=== PATIENT | female | born 1975 | race Caucasian/White ===

== ENCOUNTER 2021-12-26 16:18 | Inpatient (IN) ==
[2021-12-26] MEDS ORDERED: LACTATED RINGERS 1,000 ML IV ONE (16:57)
--- NOTE | 2021-12-26 16:57 | Emergency Department Note ---
Syncope HPI General Chief Complaint: Syncope Stated Complaint: dehydration Time Seen by Provider: 12/26/21 16:28 Source: patient Mode of arrival: ambulatory Limitations: no limitations History of Present Illness HPI Narrative: Narrative: 46-year-old female with a history of type 1 diabetes, chronic kidney disease who ended up having a dual kidney pancreas transplant in 2013 who is chronically immunosuppressed with tacrolimus and prednisone presents to the ER to be evaluated after a syncopal episode in the heat at the parking lot at [facility]. An off-duty it disaster recovery manager witnessed her episode and asked if she needs help and he helped lower her to the ground she has minor abrasions over her knees. He evaluated her blood pressure and blood glucose as well as heart rate which were all normal at the time. She ended up driving herself back to work after she was cleared by paramedics but the nurses insisted she go to the ER for evaluation. She denies fever, chills, body aches, nausea, vomiting, chest pain, chest pressure, shortness of breath, abdominal pain, dark stools, dysuria, urgency or frequency. She feels like she was dehydrated yesterday. She has been trying to hydrate, nothing is made anything better or worse. She has not had any recurrent episodes of syncope. She is here for further evaluation. Her transplant was done at [facility]. Her blood glucose taken at work was 130. She was seen in the ER approximately a month ago for concern for GI bleed she had a clear colonoscopy after that. She is on chronic iron supplementation as well. She also takes mycophenolate spironolactone lansoprazole, gabapentin and denosumab and a daily aspirin. Related Data Home Medications Medication Instructions Recorded Confirmed aspirin 81 mg chewable tablet 81 mg PO QDAY 02/13/16 10/20/21 mycophenolate sodium 360 mg 720 mg PO BID 02/13/16 10/20/21 tablet,delayed release prednisone 5 mg tablet 5 mg PO QDAY 02/13/16 10/20/21 tacrolimus 1 mg capsule, 3 mg PO .COMPLEX 02/14/17 06/03/19 immediate-release cholecalciferol (vitamin D3) 25 2,000 unit PO DAILY 10/02/17 10/20/21 mcg (1,000 unit) tablet denosumab 60 mg/mL subcutaneous 60 mg SQ ONCE 05/02/18 05/20/22 syringe omega 8-gis-emc-fish oil 500 mg 1 each PO DAILY 10/02/17 10/20/21 (200mg-300mg)-1,000 mg capsule cyclobenzaprine 10 mg tablet See Rx Instructions PO QHS 30 days 05/14/18 10/20/21 #30 tabs gabapentin 100 mg capsule See Rx Instructions PO QHS 05/14/18 10/20/21 lansoprazole 30 mg capsule,delayed 30 mg PO QPM 30 days #30 caps 05/14/18 10/20/21 release spironolactone 50 mg tablet 25 mg PO BID 20 days #20 tabs 05/14/18 10/20/21 tacrolimus 0.5 mg capsule, PO 30 days ##60 05/14/18 05/14/18 immediate-release Previous Rx's Medication Instructions Recorded amoxicillin 250 mg capsule 250 mg PO TID #30 caps 05/14/18 Allergies Allergy/AdvReac Type Severity Reaction Status Date / Time No Known Drug Allergies Allergy Verified 12/26/21 16:24 Review of Systems ROS ROS Narrative: Narrative: All systems ED: reviewed and negative except as stated. PFSH Narrative Patient History Narrative: Narrative: Medical/Surgical/Family History All Active Problems (Updated 12/26/21 @ 19:12 by Mykel Valero PA-C) Hyponatremia (Acute) Hypokalemia (Acute) Rectal bleeding (Acute) Acute upper GI bleed (Acute) Anemia (Acute) Insomnia (Chronic) Fatigue (Chronic) Osteoarthritis (Chronic) Cubital tunnel syndrome on left (Chronic) Paresthesias (Chronic) Pustular lesion (Chronic) Myofascial pain (Acute) Shoulder pain (Chronic) Immunocompromised (Chronic) Herpes zoster (Acute) Osteoporosis (Chronic) Pain of left calf (Acute) Closed fracture of lateral malleolus of left fibula (Acute) Closed fracture of medial malleolus of left tibia (Acute) Vitamin D deficiency (Chronic) Renal osteodystrophy (Chronic) End stage renal disease (Chronic) Peritonitis (Chronic) Pancreas transplanted (Chronic 01/04/14) Kidney replaced by transplant (Chronic 01/04/14) Essential hypertension (Chronic) Hyperlipidemia (Chronic) Diabetic nephropathy (Chronic) Diabetes mellitus with renal manifestation (Chronic) CKD (chronic kidney disease), stage V (Chronic 04/23/11) Band-shaped keratopathy (Chronic) Anxiety (Chronic) Anemia in CKD (chronic kidney disease) (Chronic) Medical History (Updated 12/26/21 @ 19:12 by Mykel Valero PA-C) Anemia in CKD (chronic kidney disease) Anxiety Band-shaped keratopathy CKD (chronic kidney disease), stage V (04/23/11) Diabetes mellitus with renal manifestation Kidney and pancreas transplant Diabetic nephropathy End stage renal disease Essential hypertension Hyperlipidemia Peritonitis Renal osteodystrophy Vitamin D deficiency Surgical History History of arthroscopy of left knee knee tracking surgery History of eye surgery 2003 Bilateral laser photocoagulation for diabetic retinopathy; vitrectomy History of hysterectomy 2004 History of wisdom tooth extraction Kidney replaced by transplant (01/04/14) [facility]lee Quan in [place] Pancreas transplanted (01/04/14) Ashlee Glass in [place] Family History Grandfather CHF (congestive heart failure) Father Coronary atherosclerosis Hypothyroidism Unknown Benign neoplasm of lymphatics Social History Smoking Status: Never smoker Alcohol Intake Frequency: a few times a month Substance Use: does not use Exam Narrative Narrative: Narrative: Gen: No acute distress Eyes: PERRL, no conjunctival injection , and symmetrical lids. Sclerae non icteric HENMT: Normocephalic Atraumatic head, external nose and ears. Moist MM. CVS: +S1/S2, No murmurs or gallops. Radial pulses 2+ and equal bilat. No swelling RESP: Unlabored respiratory effort . Clear to auscultation bilaterally (CTAB). No noted wheezes rales or ronchi. GI: Nontender/Nondistended (NTND), No focal tenderness MSK: Extremities w/o deformity or ttp. No cyanosis or clubbing. Skin: Warm, Dry . No rashes or lesions . Cap refill less than 2. Psych: Awake, Alert, & Oriented (AAO) x3. Appropriate mood and affect . \ General Limitations: no limitations Course Vital Signs Vital signs: Vital Signs Temperature 98.0 F 12/26/21 16:22 Pulse Rate 89 12/26/21 16:22 Respiratory Rate 16 12/26/21 16:22 Blood Pressure 128/74 12/26/21 16:22 Pulse Oximetry (%) 100 12/26/21 16:22 Oxygen Delivery Method 12/26/21 16:22 Temperature 98.0 F 12/26/21 16:22 Pulse Rate 89 12/26/21 16:22 Respiratory Rate 16 12/26/21 16:22 Blood Pressure 128/74 12/26/21 16:22 Pulse Oximetry (%) 100 12/26/21 16:22 Oxygen Delivery Method 12/26/21 16:22 MDM MDM Narrative Medical decision making narrative: Narrative: Patient has syncopal episode in the heat today. Is 105 degrees outside. She was taking her shopping cart back from shopping at [employer]. She denies any other symptoms or recurrence of episodes. She is a pancreas/kidney transplant recipient. She is chronically on tacrolimus and prednisone. She has never had a syncopal episode like this before. She believes she was dehydrated yesterday. She did have a recent GI bleed a month ago with clean colonoscopy. CBC will be obtained to rule out anemia. Chem-8 will be obtained to evaluate kidney function and electrolytes. She will also have a [id number] troponin and EKG obtained. She will receive a liter of lactated Ringer's and will be reevaluated. CBC: Hemoglobin of 5-1/2 and hematocrit of 17.9 respectively Chem-8: Hematocrit of 18 low with a BUN of 25 concerning for upper GI bleed. Patient's creatinine is 2.4. She is a kidney transplant patient. Type and screen ordered at this time [id number] troponin: 0L EKG: Normal sinus rhythm at a rate of 93 bpm with borderline MA interval minimal ST depression globally but no evidence of acute ischemia. PT INR: Normal aPTT: Normal 2 units of RBCs will be typed and crossmatched. Rectal exam will be performed Patient refused rectal exam, she had a clean colonoscopy at the end of October. This was done by Dr. Molina Shell locally and she has been seeing Kisha Kay the GRANT COORDINATOR that works with him. They said if she had continued bleeding she would need an upper endoscopy. She had an anemia requiring transfusion today. We do not have GI coverage on-call. She will be given 2 units of blood and we will work to transfer versus admission. I will withhold starting Protonix due to her kidney disease at this time. Dr Magana: Willing to do upper GI, pending hospitalist accepting Dr Adame: Graciously agreed to admit the patient CC TIME Critical Care Time Critical Care Time: Yes Total Critical Care Time: 30 Attestation: Total critical care time of 30min including performance of history and physical exam, review of results, re-examinations, time spent documenting, supervisor border department, review of old records, discussions with patient and family, discussions with lean consultant(s), discussion with admitting physician, completion of admission/transfer paperwork. This does not include time for any separately documented procedures. Discharge Plan Patient/Caregiver Discharge Instructions Pt seen by GRANT COORDINATOR/PA only: Yes Clinical Impression: Acute upper GI bleed, Anemia Patient Disposition: Xfer As Inpt ([facility]) Follow up with: Cayetano Martinez MD [Primary Care Provider] - Prescriptions: No Action tacrolimus 1 mg capsule 3 mg PO .COMPLEX Label Comments: 3 mg PO QAM and 3mg QPM Rx Instructions: 3 mg PO QAM and 2.5mg QPM prednisone 5 mg tablet 5 mg PO QDAY aspirin 81 mg tablet,chewable 81 mg PO QDAY mycophenolate sodium 360 mg tablet,delayed release (DR/EC) 720 mg PO BID gabapentin 100 mg capsule See Rx Instructions PO QHS Label Comments: 100-200mg PO QHS; Rx Instructions: 100-200mg PO QHS; spironolactone 50 mg tablet 25 mg PO BID 20 Days Qty: 20 Label Comments: RX Dr. Nicole lansoprazole 30 mg capsule,delayed release(DR/EC) 30 mg PO QPM 30 Days Qty: 30 Label Comments: RX from Dr. Nicole tacrolimus 0.5 mg capsule PO 30 Days Qty: 60 cyclobenzaprine 10 mg tablet See Rx Instructions PO QHS 30 Days Qty: 30 Label Comments: 10-20mg PO QHS; RX Dr. Nicole Rx Instructions: 10-20mg PO QHS; RX Dr. Nicole amoxicillin 250 mg capsule 250 mg PO TID Qty: 30 0RF cholecalciferol (vitamin D3) 1,000 UNIT tablet 2,000 unit PO DAILY omega 4-sxp-cef-fish oil 1 EACH capsule 1 each PO DAILY denosumab 60 MG/ML syringe 60 mg SQ ONCE Rx Instructions: Q 6 Months
[2021-12-26 17:17] LABS: POC Calcium, Ionized 1.08 (1.16-1.32); POC Creatinine 2.4 (0.6-1.2); POC Potassium 3.8 (3.3-5.1)
[2021-12-26 17:52] LABS: Basophils # (Auto) 0.03 K/mcL (0.00-0.30); Basophils % (Auto) 0.5 % (0.0-2.0); Eosinophils # (Auto) 0 K/mcL (0.00-0.70); Eosinophils % (Auto) 0 % (0.0-7.0); Hematocrit 17.9 % (34.1-44.9); Hemoglobin 5.5 g/dL (11.2-15.7); Lymphocytes # (Auto) 0.54 K/mcL (1.50-4.80); Mean Cell Volume 84.4 fL (80.0-100.0); Mean Corpuscular HGB Conc 30.7 g/dL (31.0-36.0); Mean Platelet Volume 9.3 fL (7.4-10.4); Monocytes % (Auto) 6.7 % (1.0-12.0); Neutrophils % (Auto) 83.5 % (38.0-78.0); Platelet Count 335 K/mcL (140-440); RBC 2.12 M/mcL (3.59-5.38); Red Cell Distribution Width 18.9 % (11.5-14.5)
[2021-12-26] MEDS ORDERED: 0.9 % SODIUM CHLORIDE 250 ML IV SCH ×2 (18:00→20:15)
[2021-12-26 18:26] LABS: INR 0.9 (0.9-1.1)
--- NOTE | 2021-12-26 20:23 | Internal Med History&Physical ---
HPI History of Present Illness Patient information: Note initiated : 12/26/21 at 8:18 pm Service Date, if different from initiated Date: [] Patient: Selena Gardner 46 y/o F admitted on for dehydration. Chief Complaint: [syncope] Chief complaint: syncope History of present illness: Ms. Ariel Arora is a 46 year old F history of type 1 diabetes and end-stage renal disease status post pancreas and kidney transplant 8 years ago, presenting with multiple episode of syncope. She passed out once over the weekend 3 days ago and then again earlier this afternoon. She was in the [employer] parking lot and she suddenly felt lightheaded with mild shortness of breath then she passed out and lost consciousness. She woke up surrounded by any nurse first assist who passed by and told her that she resumed her consciousness soon after she passed out. She was being sent to our ED via EMS. Patient stated that she had a colonoscopy in year ago and he was told to clean. Labs significant for severe anemia with hemoglobin count 5.5; it was 10.0 back in October 2021. Other remarkable labs finding were hyper natremia with sodium level 128 as well as serum creatinine level of 2.4 with baseline 1.9. Patient refused rectal exams. Admission request was called for symptomatic anemia with associated syncope. Constitutional Constitutional: Absent chills, excessive sweating, fatigue, fever(s) or weakness EENT Eyes: Absent blurry vision, change in vision, loss of vision or other visual disturbances Ears: Absent decreased hearing or tinnitus Nose, mouth and throat: Absent abnormal hearing, dry mouth, headache(s), nasal congestion or sore throat Cardiovascular Cardiovascular: Absent chest pain, chest pain at rest, edema, irregular heart rhythm or palpatations Respiratory Respiratory: Absent cough, dyspnea or wheezing Gastrointestinal Gastrointestinal: Absent abdominal pain, constipation, diarrhea, nausea or vomit ing Musculoskeletal Musculoskeletal: Absent back pain, deformity, limited range of motion, muscle cramps, muscle weakness or numbness Integumentary Integumentary: Absent lesions, rash or wounds Neurological Neurological: Absent focal weakness, headache(s) or numbness Psychiatric Psychiatric: Absent anxiety, depression or hallucinations PFSH PFSH All Active Problems (Updated 12/26/21 @ 20:27 by West Adame MD) Stage 2 acute kidney injury (Acute) Symptomatic anemia (Acute) Hyponatremia (Acute) Hypokalemia (Acute) Rectal bleeding (Acute) Acute upper GI bleed (Acute) Anemia (Acute) Insomnia (Chronic) Fatigue (Chronic) Osteoarthritis (Chronic) Cubital tunnel syndrome on left (Chronic) Paresthesias (Chronic) Pustular lesion (Chronic) Myofascial pain (Acute) Shoulder pain (Chronic) Immunocompromised (Chronic) Herpes zoster (Acute) Osteoporosis (Chronic) Pain of left calf (Acute) Closed fracture of lateral malleolus of left fibula (Acute) Closed fracture of medial malleolus of left tibia (Acute) Vitamin D deficiency (Chronic) Renal osteodystrophy (Chronic) End stage renal disease (Chronic) Peritonitis (Chronic) Pancreas transplanted (Chronic 01/04/14) Kidney replaced by transplant (Chronic 01/04/14) Essential hypertension (Chronic) Hyperlipidemia (Chronic) Diabetic nephropathy (Chronic) Diabetes mellitus with renal manifestation (Chronic) CKD (chronic kidney disease), stage V (Chronic 04/23/11) Band-shaped keratopathy (Chronic) Anxiety (Chronic) Anemia in CKD (chronic kidney disease) (Chronic) Medical History (Updated 12/26/21 @ 20:27 by West Adame MD) Anemia in CKD (chronic kidney disease) Anxiety Band-shaped keratopathy CKD (chronic kidney disease), stage V (04/23/11) Diabetes mellitus with renal manifestation Kidney and pancreas transplant Diabetic nephropathy End stage renal disease Essential hypertension Hyperlipidemia Peritonitis Renal osteodystrophy Vitamin D deficiency Surgical History History of arthroscopy of left knee knee tracking surgery History of eye surgery 2003 Bilateral laser photocoagulation for diabetic retinopathy; vitrectomy History of hysterectomy 2004 History of wisdom tooth extraction Kidney replaced by transplant (01/04/14) Ashlee Glass in [place] Pancreas transplanted (01/04/14) Ashlee Glass in [place] Family History Grandfather CHF (congestive heart failure) Father Coronary atherosclerosis Hypothyroidism Unknown Benign neoplasm of lymphatics Social History (Updated 06/05/18 @ 20:20 by Toño Benites MD) household members: spouse housing: house lives independently: Yes marital status: education level: college occupational status: employed alcohol intake frequency: a few times a month substance use type: does not use MEDS/ALLERGIES Home Medications and Allergies Home Medications Medication Instructions Recorded Confirmed Type aspirin 81 mg chewable tablet 81 mg PO QDAY 02/13/16 10/20/21 History mycophenolate sodium 360 mg 720 mg PO BID 02/13/16 10/20/21 History tablet,delayed release prednisone 5 mg tablet 5 mg PO QDAY 02/13/16 10/20/21 History tacrolimus 1 mg capsule, 3 mg PO .COMPLEX 02/14/17 06/03/19 History immediate-release cholecalciferol (vitamin D3) 25 2,000 unit PO DAILY 10/02/17 10/20/21 History mcg (1,000 unit) tablet denosumab 60 mg/mL subcutaneous 60 mg SQ ONCE 10/02/17 10/20/21 History syringe omega 2-cci-ykj-fish oil 500 mg 1 each PO DAILY 10/02/17 10/20/21 History (200mg-300mg)-1,000 mg capsule amoxicillin 250 mg capsule 250 mg PO TID #30 caps 05/14/18 10/20/21 Rx cyclobenzaprine 10 mg tablet See Rx Instructions PO QHS 30 days 05/14/18 10/20/21 History #30 tabs gabapentin 100 mg capsule See Rx Instructions PO QHS 05/14/18 10/20/21 History lansoprazole 30 mg capsule,delayed 30 mg PO QPM 30 days #30 caps 05/14/18 10/20/21 History release spironolactone 50 mg tablet 25 mg PO BID 20 days #20 tabs 05/14/18 10/20/21 History tacrolimus 0.5 mg capsule, PO 30 days ##60 05/14/18 05/14/18 History immediate-release Allergies Allergy/AdvReac Type Severity Reaction Status Date / Time No Known Drug Allergies Allergy Verified 12/26/21 16:24 EXAM Constitutional Vitals: Temp Pulse Resp BP Pulse Ox O2 Del Method 36.7 C 99 H 16 132/72 100 12/26/21 16:22 12/26/21 19:16 12/26/21 16:22 12/26/21 19:16 12/26/21 19:16 12/26/21 16:22 General appearance: cooperative and no acute distress Head Head exam: Present atraumatic and normocephalic Eye Eye exam: Present EOMI and PERRL ENT ENT exam: Present mucous membranes moist, normal exam and normal external ear exam Neck Neck exam: Present normal inspection; Absent lymphadenopathy, tenderness or thyromegaly Respiratory Respiratory exam: Absent accessory muscle use, respiratory distress or wheezes Cardiovascular Cardiovascular exam: Present systolic murmur; Absent JVD GI/Abdominal GI/Abdominal exam: Present normal bowel sounds and soft; Absent organomegaly or tenderness Extremities Exam Extremities exam: Present full ROM, normal capillary refill and normal inspection; Absent tenderness Neurological Exam Neurological exam: Present alert, CN II-XII intact and oriented X3; Absent motor sensory deficit Psychiatric Psychiatric exam: Present normal affect and normal mood; Absent anxious or depressed Skin Skin exam: Present dry and intact DATA Data Completed and Pending Labs: Labs from last 24 hours 12/26/21 12/26/21 12/26/21 17:19 17:12 17:05 WBC RBC Hgb Hct POC Hct 18.0 L* MCV MCH MCHC RDW Plt Count MPV Immature Gran % (Auto) Neut % (Auto) Lymph % (Auto) Brooke % (Auto) Eos % (Auto) Baso % (Auto) Lymph # (Auto) Brooke # (Auto) Eos # (Auto) Baso # (Auto) Immature Gran # Absolute Neutrophils PT 13.0 INR 0.9 APTT 24.0 POC Sodium 128 L POC Potassium 3.8 POC Chloride 90 L POC Total CO2 32.0 H POC BUN 25 H POC Creatinine 2.4 H POC Glucose 121 H POC WB Ioniz Calcium 1.08 L POC Troponin I 0 L 12/26/21 17:05 WBC 6.0 RBC 2.12 L Hgb 5.5 L* Hct 17.9 L* POC Hct MCV 84.4 MCH 25.9 L MCHC 30.7 L RDW 18.9 H Plt Count 335 MPV 9.3 Immature Gran % (Auto) 0.3 Neut % (Auto) 83.5 H Lymph % (Auto) 9.0 L Brooke % (Auto) 6.7 Eos % (Auto) 0 Baso % (Auto) 0.5 Lymph # (Auto) 0.54 L Brooke # (Auto) 0.40 Eos # (Auto) 0 Baso # (Auto) 0.03 Immature Gran # 0.02 Absolute Neutrophils 5.02 PT INR APTT POC Sodium POC Potassium POC Chloride POC Total CO2 POC BUN POC Creatinine POC Glucose POC WB Ioniz Calcium POC Troponin I A/P Assessment and plan (1) Hyponatremia: Status: Acute (2) Symptomatic anemia: Status: Acute (3) Immunocompromised: Status: Chronic (4) Kidney replaced by transplant: Status: Chronic Comment: Ashlee Glass in [place] (5) Pancreas transplanted: Status: Chronic Comment: Ashlee Glass in [place] (6) Stage 2 acute kidney injury: Status: Acute Narrative A/P Narrative: Assessment and Plans: 1. Symptomatic anemia, suspect upper GI bleeding: Inpatient med surg Clear liquid diet, NPO after midnight Consulting general surgeon Dr. Mgaana for potential EGD Protonix IV BID Hold Aspirin 2 unit pRBC transfusion, repeat cbc in the morning to trend H/H 2. Stage 2 acute kidney injury, s/p kidney/pancreas double transplant: Baseline creatinine level 2.0, currently at 2.4 IV fluid, hold diuretics Mycophenolate Tacrolimus Prednisone Repeat CMP in the morning to trend kidney functions 3. Hyponatremia: IV fluid, hold diuretics Repeat CMP in the morning to trend serum sodium level GI ppx: Protonix IV BID DVT ppx: SCDs Code status: Full Prognosis: guarded Disposition: inpatient med surg Time Spent With Patient Time: Total time spent is greater than 50% in coordination of care (as documented) at patient's floor/unit and/or counseling patient: Total time spent with greater than 50% in coordination of care (as documented) at patient's floor/unit and/or counseling patient:: 50 - 70 minutes
[2021-12-26] MEDS ORDERED: TACROLIMUS 0.5 MG CAPSULE PO SCH (21:00)
[2021-12-26] MEDS ORDERED: IPRATROPIUM/ALBUTEROL 3 ML AMPUL.NEB NEB PRN (21:02)
[2021-12-26] MEDS ORDERED: ONDANSETRON 4 MG/2 ML VIAL IV PRN (21:02)
[2021-12-26] MEDS ORDERED: traZODone HCL 50 MG TABLET PO PRN (21:02)
[2021-12-26] MEDS ORDERED: GABAPENTIN 100 MG CAPSULE PO SCH (21:02)
[2021-12-26] MEDS: ACETAMINOPHEN 325 MG TABLET PO PRN (22:14)
[2021-12-26] MEDS: TACROLIMUS 1 MG CAPSULE PO SCH (22:17)
[2021-12-26] MEDS: 0.9 % SODIUM CHLORIDE 10 ML SYRINGE IV SCH (22:23)
[2021-12-26] MEDS: 0.9 % SODIUM CHLORIDE 1,000 ML IV SCH (23:31)
[2021-12-27] MEDS: ACETAMINOPHEN 325 MG TABLET PO PRN ×2 (03:58→10:53)
[2021-12-27] MEDS: 0.9 % SODIUM CHLORIDE 10 ML SYRINGE IV SCH ×2 (03:59→14:12)
[2021-12-27 06:17] LABS: Basophils # (Auto) 0.05 K/mcL (0.00-0.30); Basophils % (Auto) 0.8 % (0.0-2.0); Eosinophils # (Auto) 0.03 K/mcL (0.00-0.70); Eosinophils % (Auto) 0.5 % (0.0-7.0); Hematocrit 25.2 % (34.1-44.9); Hemoglobin 7.9 g/dL (11.2-15.7); Lymphocytes # (Auto) 1.41 K/mcL (1.50-4.80); Lymphocytes % (Auto) 22.6 % (15.5-49.0); Mean Cell Volume 85.7 fL (80.0-100.0); Mean Corpuscular HGB Conc 31.3 g/dL (31.0-36.0); Mean Platelet Volume 9.2 fL (7.4-10.4); Monocytes # (Auto) 0.59 K/mcL (0.10-0.90); Monocytes % (Auto) 9.4 % (1.0-12.0); Neutrophils % (Auto) 66.4 % (38.0-78.0); Platelet Count 250 K/mcL (140-440); RBC 2.94 M/mcL (3.59-5.38); Red Cell Distribution Width 17.2 % (11.5-14.5); WBC 6.3 K/mcL (4.5-11.0)
[2021-12-27 06:40] LABS: ALT/SGPT 8 U/L (<40); AST/SGOT 12 U/L (<32); Albumin/Globulin Ratio 1.7 (1.0-2.3); Alkaline Phosphatase 41 U/L (39-117); Bilirubin,Total 0.6 mg/dL (0.1-1.0); Blood Urea Nitrogen 22 mg/dL (6-20); Calcium 7.9 mg/dL (8.6-10.4); Carbon Dioxide 25 mmol/L (22-30); Chloride 97 mmol/L (96-108); Globulin 1.8 gm/dL (2.2-3.7); Glomerular Filtration Rate 31; Glucose 83 mg/dL (70-105)
--- NOTE | 2021-12-27 08:03 | General Surg History&Physical ---
HPI History of Present Illness Patient information: Note initiated : 12/27/21 at 7:58 am Service Date, if different from initiated Date: [] Patient: Selena Gardner 46 y/o F admitted on 12/26/21 for dehydration. Chief Complaint: [] Chief complaint: Weakness History of present illness: Ms. Ariel Arora is a 46 year old F who presented to the hospital several months ago with a GI bleed, she was admitted and underwent a colonoscopy by Dr. Marie which was by report negative. She was discharged and was doing well up until yesterday when she was walking in the parking lot at [facility] felt faint and had a witnessed syncopal episode, she never lost consciousness. She was referred to the emergency room where her H&H was significant for a marked decrease. She was told at the time of her colonoscopy and if she ever had any other symptoms of a GI bleed she would need an upper endoscopy. I was called to do an EGD. Patient at this time feels much better, she was admitted overnight given 2 units of blood her H&H responded appropriately. She denies any dark or melanotic stools, she has no lightheadedness at this time. She has no fevers chills nausea or vomiting. Review of Systems Review of systems: All systems are reviewed, negative other than above PFSH PFSH All Active Problems Stage 2 acute kidney injury (Acute) Symptomatic anemia (Acute) Hyponatremia (Acute) Hypokalemia (Acute) Rectal bleeding (Acute) Acute upper GI bleed (Acute) Anemia (Acute) Insomnia (Chronic) Fatigue (Chronic) Osteoarthritis (Chronic) Cubital tunnel syndrome on left (Chronic) Paresthesias (Chronic) Pustular lesion (Chronic) Myofascial pain (Acute) Shoulder pain (Chronic) Immunocompromised (Chronic) Herpes zoster (Acute) Osteoporosis (Chronic) Pain of left calf (Acute) Closed fracture of lateral malleolus of left fibula (Acute) Closed fracture of medial malleolus of left tibia (Acute) Vitamin D deficiency (Chronic) Renal osteodystrophy (Chronic) End stage renal disease (Chronic) Peritonitis (Chronic) Pancreas transplanted (Chronic 01/04/14) Kidney replaced by transplant (Chronic 01/04/14) Essential hypertension (Chronic) Hyperlipidemia (Chronic) Diabetic nephropathy (Chronic) Diabetes mellitus with renal manifestation (Chronic) CKD (chronic kidney disease), stage V (Chronic 04/23/11) Band-shaped keratopathy (Chronic) Anxiety (Chronic) Anemia in CKD (chronic kidney disease) (Chronic) Medical History Anemia in CKD (chronic kidney disease) Anxiety Band-shaped keratopathy CKD (chronic kidney disease), stage V (04/23/11) Diabetes mellitus with renal manifestation Kidney and pancreas transplant Diabetic nephropathy End stage renal disease Essential hypertension Hyperlipidemia Peritonitis Renal osteodystrophy Vitamin D deficiency Surgical History History of arthroscopy of left knee knee tracking surgery History of eye surgery 2003 Bilateral laser photocoagulation for diabetic retinopathy; vitrectomy History of hysterectomy 2004 History of wisdom tooth extraction Kidney replaced by transplant (01/04/14) [facility] in [place] Pancreas transplanted (01/04/14) [facility] in [place] Family History Grandfather CHF (congestive heart failure) Father Coronary atherosclerosis Hypothyroidism Unknown Benign neoplasm of lymphatics Social History household members: spouse housing: house lives independently: Yes marital status: education level: college occupational status: employed alcohol intake frequency: a few times a month substance use type: does not use MEDS/ALLERGIES Home Medications and Allergies Home Medications Medication Instructions Recorded Confirmed Type aspirin 81 mg chewable tablet 81 mg PO QDAY 02/13/16 12/27/21 History mycophenolate sodium 360 mg 720 mg PO BID 02/13/16 12/27/21 History tablet,delayed release prednisone 5 mg tablet 5 mg PO QDAY 02/13/16 12/27/21 History tacrolimus 1 mg capsule, 2 mg PO BID 02/14/17 12/27/21 History immediate-release cholecalciferol (vitamin D3) 25 2,000 unit PO DAILY 10/02/17 12/27/21 History mcg (1,000 unit) tablet omega 0-flh-yfn-fish oil 500 mg 1 each PO DAILY 10/02/17 12/27/21 History (200mg-300mg)-1,000 mg capsule cyclobenzaprine 10 mg tablet See Rx Instructions PO QHS PRN 05/14/18 12/27/21 History Muscle Pain 30 days #30 tabs gabapentin 100 mg capsule See Rx Instructions PO QHS 05/14/18 12/27/21 History lansoprazole 30 mg capsule,delayed 30 mg PO QPM 30 days #30 caps 05/14/18 12/27/21 History release spironolactone 50 mg tablet See Rx Instructions .Route 05/14/18 12/27/21 History .COMPLEX 20 days #20 tabs Tylenol PM Extra Strength 1,000 mg PO QPM 12/27/21 12/27/21 History torsemide 10 mg tablet 1 tab PO QDAY 12/27/21 12/27/21 History Allergies Allergy/AdvReac Type Severity Reaction Status Date / Time No Known Drug Allergies Allergy Verified 12/26/21 16:24 Physical Examination Vital Signs Vital signs: Temp Pulse Resp BP Pulse Ox O2 Del Method 97.6 F 76 12 127/74 98 12/27/21 03:51 12/27/21 03:51 12/27/21 03:51 12/27/21 03:51 12/27/21 03:51 12/27/21 03:51 General physical appearance General physical exam: well developed, well nourished and no distress Eyes Eye exam: PERRL and normal ocular movement ENT ENT exam: normal pinna, normal nares, normal mucosa, no hearing loss and no congestion Head Head exam IM: Present atraumatic and normocephalic Neck Neck exam: no masses, no bruits, trachea midline, no lymphadenopathy and no venous distension Cardiovascular Cardiovascular exam IM: Present normal rate and rhythm Respiratory Respiratory exam: normal expansion, normal respiratory effort, clear to percuss ion and clear to auscultation Abdomen Abdomen: Present soft, non tender and bowel sounds Hernia: Present none Genitourinary Genitourinary (Female): Present normal external genitalia Rectum Rectum: Present normal sphincter tone, no hemorrhoids, no tenderness, no masses and no bleeding Integumentary Integumentary: Present no rash, no growths and no abnormal pigmentation Neurologic Neurologic: Present normal coordination and normal sensation Musculoskeletal Musculoskeletal: Present normal gait and normal posture Psychiatric Psychiatric: Present oriented to time, oriented to person, oriented to place, speech is normal and memory intact Results Labs Result diagrams: 12/27/21 05:10 12/27/21 05:10 Labs: Abnormal lab results 12/26/21 12/26/21 12/26/21 Range/Units 17:05 17:12 17:19 RBC 2.12 L (3.59-5.38) M/mcL Hgb 5.5 L* (11.2-15.7) g/dL Hct 17.9 L* (34.1-44.9) % POC Hct 18.0 L* (36-48) MCH 25.9 L (26.0-34.0) pg MCHC 30.7 L (31.0-36.0) g/dL RDW 18.9 H (11.5-14.5) % Neut % (Auto) 83.5 H (38.0-78.0) % Lymph % (Auto) 9.0 L (15.5-49.0) % Lymph # (Auto) 0.54 L (1.50-4.80) K/mcL POC Sodium 128 L (133-145) Sodium (133-145) mmol/L POC Chloride 90 L (96-108) POC Total CO2 32.0 H (22-30) POC BUN 25 H (6-20) BUN (6-20) mg/dL Creatinine (0.6-1.1) mg/dL POC Creatinine 2.4 H (0.6-1.2) POC Glucose 121 H (70-105) Calcium (8.6-10.4) mg/dL POC WB Ioniz Calcium 1.08 L (1.16-1.32) Total Protein (5.9-8.4) gm/dL Albumin (3.2-5.2) gm/dL Globulin (2.2-3.7) gm/dL POC Troponin I 0 L (0.02-0.08) 12/27/21 12/27/21 Range/Units 05:10 05:10 RBC 2.94 L (3.59-5.38) M/mcL Hgb 7.9 L (11.2-15.7) g/dL Hct 25.2 L (34.1-44.9) % POC Hct (36-48) MCH (26.0-34.0) pg MCHC (31.0-36.0) g/dL RDW 17.2 H (11.5-14.5) % Neut % (Auto) (38.0-78.0) % Lymph % (Auto) (15.5-49.0) % Lymph # (Auto) 1.41 L (1.50-4.80) K/mcL POC Sodium (133-145) Sodium 131 L (133-145) mmol/L POC Chloride (96-108) POC Total CO2 (22-30) POC BUN (6-20) BUN 22 H (6-20) mg/dL Creatinine 1.9 H (0.6-1.1) mg/dL POC Creatinine (0.6-1.2) POC Glucose (70-105) Calcium 7.9 L (8.6-10.4) mg/dL POC WB Ioniz Calcium (1.16-1.32) Total Protein 4.8 L (5.9-8.4) gm/dL Albumin 3.0 L (3.2-5.2) gm/dL Globulin 1.8 L (2.2-3.7) gm/dL POC Troponin I (0.02-0.08) Diabetes panel 12/27/21 Range/Units 05:10 Sodium 131 L (133-145) mmol/L Potassium 3.7 (3.3-5.1) mmol/L Chloride 97 (96-108) mmol/L Carbon Dioxide 25 (22-30) mmol/L BUN 22 H (6-20) mg/dL Creatinine 1.9 H (0.6-1.1) mg/dL Glucose 83 (70-105) mg/dL Calcium 7.9 L (8.6-10.4) mg/dL AST 12 (<32) U/L ALT 8 (<40) U/L Alkaline Phosphatase 41 (39-117) U/L Total Protein 4.8 L (5.9-8.4) gm/dL Albumin 3.0 L (3.2-5.2) gm/dL Calcium panel 12/27/21 Range/Units 05:10 Calcium 7.9 L (8.6-10.4) mg/dL Albumin 3.0 L (3.2-5.2) gm/dL Pituitary panel 12/27/21 Range/Units 05:10 Sodium 131 L (133-145) mmol/L Potassium 3.7 (3.3-5.1) mmol/L Chloride 97 (96-108) mmol/L Carbon Dioxide 25 (22-30) mmol/L BUN 22 H (6-20) mg/dL Creatinine 1.9 H (0.6-1.1) mg/dL Glucose 83 (70-105) mg/dL Calcium 7.9 L (8.6-10.4) mg/dL Adrenal panel 12/27/21 Range/Units 05:10 Sodium 131 L (133-145) mmol/L Potassium 3.7 (3.3-5.1) mmol/L Chloride 97 (96-108) mmol/L Carbon Dioxide 25 (22-30) mmol/L BUN 22 H (6-20) mg/dL Creatinine 1.9 H (0.6-1.1) mg/dL Glucose 83 (70-105) mg/dL Calcium 7.9 L (8.6-10.4) mg/dL Total Bilirubin 0.6 (0.1-1.0) mg/dL AST 12 (<32) U/L ALT 8 (<40) U/L Alkaline Phosphatase 41 (39-117) U/L Total Protein 4.8 L (5.9-8.4) gm/dL Albumin 3.0 L (3.2-5.2) gm/dL All other labs normal. A/P Assessment and plan (1) Stage 2 acute kidney injury: Status: Acute (2) Acute upper GI bleed: Plan: This is a pleasant 46-year-old female who presents with a GI bleed, most likely upper source. Risk, benefits, alternatives to work-up discussed with her at length including details of procedure and what to expect pre and post. She verbalizes understanding, all her questions are answered and she desires to continue. Plan: EGD today, follow-up based on results. Status: Acute Time Spent With Patient Time: Total time spent is greater than 50% in coordination of care (as documented) at patient's floor/unit and/or counseling patient:
[2021-12-27] MEDS: PANTOPRAZOLE 40 MG VIAL IV SCH ×2 (08:11→17:09)
[2021-12-27] MEDS ORDERED: TACROLIMUS 1 MG CAPSULE PO SCH (09:00)
[2021-12-27] MEDS ORDERED: VITAMIN D3 25 MCG TABLET PO SCH (09:00)
[2021-12-27] MEDS ORDERED: FISH OIL 1,000 MG CAPSULE PO SCH (09:00)
[2021-12-27] MEDS ORDERED: predniSONE 5 MG TABLET PO SCH (09:00)
[2021-12-27] MEDS ORDERED: MYCOPHENOLATE SODIUM 360 MG PO SCH (09:00)
[2021-12-27] MEDS: TACROLIMUS 1 MG CAPSULE PO SCH (09:13)
[2021-12-27] MEDS: 0.9 % SODIUM CHLORIDE 1,000 ML IV SCH (09:15)
[2021-12-27] MEDS ORDERED: PROPOFOL 200 MG/20 ML VIAL IV SCH (12:00)
[2021-12-27] MEDS ORDERED: MIDAZOLAM 2 MG/2 ML VIAL IV SCH (12:00)
--- NOTE | 2021-12-27 15:17 | EGD Procedure Note ---
EGD Procedure Notes Procedure Information Patient information: Note initiated : 12/27/21 at 3:16 pm Patient: Selena Gardner 46 y/o F admitted on 12/26/21 for dehydration. Pre-op diagnosis general: GI bleed Post-Op Diagnosis general: Same Date of Procedure: 12/27/21 Procedure: Esophagogastroduodenoscopy Procedure Narrative: After risk benefits and alternatives to the procedure were discussed with the patient at length she verbalized understanding and desire to continue with the procedure. Patient was taken to endoscopy. Surgical timeout was taken to verify patient and procedure being performed sedation was administered with 2 mg of Versed and 90 mcg of propofol. An adult gastroscope was entered and advanced under direct vision into the second portion of the duodenum. The antrum was fully inspected, the scope was retroflexed in the stomach. Full examination revealed normal second portion of the duodenum, normal first portion of the duodenum, normal stomach without evidence of bleed or ulcer. The GE junction was at 35 cm and the esophagus was normal on full exam. EBL none. Patient tolerated procedure well. Assessment: Normal EGD. May need tagged RBC scan versus capsule endoscopy to identify source of GI bleed.
--- NOTE | 2021-12-27 15:31 | Discharge Summary ---
Discharge Provider Provider IMPORTANT FOLLOW-UP INFORMATION FOR PCP: Patient information: Note initiated : 12/27/21 at 3:29 pm Service Date, if different from initiated Date: [] Patient: Selena Gardner 46 y/o F admitted on 12/26/21 for dehydration. Chief Complaint: [] Date of admission: 12/26/21 20:55 Discharge date: 12/27/21 Primary care physician: Cayetano Martinez Attending physician on admission: West Adame Consults: 12/26/21 18:15 Consult to Physician [CONS] Stat Comment: Consulting Provider: West Adame Reason For Exam: Physician to Consult Consult to Physician [CONS] Stat Comment: Consulting Provider: Matt Magana Reason For Exam: Physician to Consult 12/26/21 21:02 Consult to Physician [CONS] Routine Comment: Consulting Provider: Matt Magana Reason For Exam: Physician to Consult Attending physician on discharge: West Collado Puseb COURSE Hospital Course Hospital course: Ms. Ariel Arora is a 46 year old F history of type 1 diabetes and end-stage renal disease status post pancreas and kidney transplant 8 years ago, presenting with multiple episode of syncope. She passed out once over the weekend 3 days ago and then again earlier this afternoon. She was in the [employer] parking lot and she suddenly felt lightheaded with mild shortness of breath then she passed out and lost consciousness. She woke up surrounded by any business services manager who passed by and told her that she resumed her consciousness soon after she passed out. She was being sent to our ED via EMS. Patient stated that she had a colonoscopy in year ago and he was told to clean. Labs significant for severe anemia with hemoglobin count 5.5; it was 10.0 back in October 2021. Other remarkable labs finding were hyper natremia with sodium level 128 as well as serum creatinine level of 2.4 with baseline 1.9. Patient refused rectal exams. Admission request was called for symptomatic anemia with associated syncope. 12/27: S/p 2 unit PRBC transfusions and hemoglobin responds appropriately to date. Patient's underwent EGD by general surgeon Dr. Magana who did not find any signs of acute or recent upper GI bleeding. Patient's reached clinical stability and being discharged home with follow-up primarily with Dr. Colvin GI made for her. All questions were answered prior to patient being physically discharged. Discharge diagnosis: symptomatic anemia Time Spent with Patient Time attestation: Total time spent providing and/or coordinating discharge services: Time spent: Less than 30 minutes EXAM Constitutional Vitals: Temp Pulse Resp BP Pulse Ox O2 Del Method 36.7 C 89 16 110/66 96 12/27/21 15:08 12/27/21 15:24 12/27/21 15:24 12/27/21 15:24 12/27/21 15:24 12/27/21 15:24 General appearance: cooperative and no acute distress Head Head exam: Present atraumatic and normocephalic Eye Eye exam: Present EOMI and PERRL ENT ENT exam: Present mucous membranes moist, normal exam and normal external ear exam Neck Neck exam: Present normal inspection; Absent lymphadenopathy, tenderness or thyromegaly Respiratory Respiratory exam: Absent accessory muscle use, respiratory distress or wheezes Cardiovascular Cardiovascular exam: Present normal rate and rhythm; Absent JVD GI/Abdominal GI/Abdominal exam: Present normal bowel sounds and soft; Absent organomegaly or tenderness Extremities Exam Extremities exam: Present full ROM, normal capillary refill and normal inspection; Absent tenderness Neurological Exam Neurological exam: Present alert, CN II-XII intact and oriented X3; Absent motor sensory deficit Psychiatric Psychiatric exam: Present normal affect and normal mood; Absent anxious or depressed Skin Skin exam: Present dry and intact Discharge Data Data Completed and Pending Labs on day of discharge: Labs from last 24 hours 12/27/21 12/27/21 12/26/21 05:10 05:10 17:19 WBC 6.3 RBC 2.94 L Hgb 7.9 L Hct 25.2 L POC Hct MCV 85.7 MCH 26.9 MCHC 31.3 RDW 17.2 H Plt Count 250 MPV 9.2 Immature Gran % (Auto) 0.3 Neut % (Auto) 66.4 Lymph % (Auto) 22.6 [place] % (Auto) 9.4 Eos % (Auto) 0.5 Baso % (Auto) 0.8 Lymph # (Auto) 1.41 L [place] # (Auto) 0.59 Eos # (Auto) 0.03 Baso # (Auto) 0.05 Immature Gran # 0.02 Absolute Neutrophils 4.17 PT INR APTT POC Sodium Sodium 131 L POC Potassium Potassium 3.7 POC Chloride Chloride 97 Carbon Dioxide 25 POC Total CO2 Anion Gap 9.0 POC BUN BUN 22 H Creatinine 1.9 H POC Creatinine GFR Calculation 31 Glucose 83 POC Glucose Calcium 7.9 L POC WB Ioniz Calcium Total Bilirubin 0.6 AST 12 ALT 8 Alkaline Phosphatase 41 Total Protein 4.8 L Albumin 3.0 L Globulin 1.8 L Albumin/Globulin Ratio 1.7 POC Troponin I 0 L 12/26/21 12/26/21 12/26/21 17:12 17:05 17:05 WBC 6.0 RBC 2.12 L Hgb 5.5 L* Hct 17.9 L* POC Hct 18.0 L* MCV 84.4 MCH 25.9 L MCHC 30.7 L RDW 18.9 H Plt Count 335 MPV 9.3 Immature Gran % (Auto) 0.3 Neut % (Auto) 83.5 H Lymph % (Auto) 9.0 L [place] % (Auto) 6.7 Eos % (Auto) 0 Baso % (Auto) 0.5 Lymph # (Auto) 0.54 L [place] # (Auto) 0.40 Eos # (Auto) 0 Baso # (Auto) 0.03 Immature Gran # 0.02 Absolute Neutrophils 5.02 PT 13.0 INR 0.9 APTT 24.0 POC Sodium 128 L Sodium POC Potassium 3.8 Potassium POC Chloride 90 L Chloride Carbon Dioxide POC Total CO2 32.0 H Anion Gap POC BUN 25 H BUN Creatinine POC Creatinine 2.4 H GFR Calculation Glucose POC Glucose 121 H Calcium POC WB Ioniz Calcium 1.08 L Total Bilirubin AST ALT Alkaline Phosphatase Total Protein Albumin Globulin Albumin/Globulin Ratio POC Troponin I Discharge Plan Patient/Caregiver Discharge Instructions Activity: increase activity as tolerated Diet: Regular Diet Prescriptions: Continued tacrolimus 1 mg capsule 2 mg PO BID Label Comments: 3 mg PO QAM and 3mg QPM prednisone 5 mg tablet 5 mg PO QDAY mycophenolate sodium 360 mg tablet,delayed release (DR/EC) 720 mg PO BID gabapentin 100 mg capsule See Rx Instructions PO QHS Label Comments: 100-200mg PO QHS; Rx Instructions: 100-200mg PO QHS; spironolactone 50 mg tablet See Rx Instructions .ROUTE .COMPLEX 20 Days Qty: 20 Label Comments: RX Dr. Nicole Rx Instructions: take 25mg in AM, 50mg in PM lansoprazole 30 mg capsule,delayed release(DR/EC) 30 mg PO QPM 30 Days Qty: 30 Label Comments: RX from Dr. Nicole cyclobenzaprine 10 mg tablet See Rx Instructions PO QHS PRN (Reason: Muscle Pain) 30 Days Qty: 30 Label Comments: 10-20mg PO QHS; RX Dr. Nicole Rx Instructions: 10-20mg PO QHS; RX Dr. Nicole cholecalciferol (vitamin D3) 1,000 UNIT tablet 2,000 unit PO DAILY omega 9-rnv-bue-fish oil 1 EACH capsule 1 each PO DAILY torsemide 10 mg tablet 1 tab PO QDAY Tylenol PM Extra Strength 1,000 mg PO QPM Discontinued aspirin 81 mg tablet,chewable 81 mg PO QDAY Follow Up Plan Follow up with: LAMINE Colvin [Other] Cayetano Martinez MD [Primary Care Provider] - Patient Disposition: Home, Self-Care Rehab Potential: Good I certify that the patient requires SNF services: No Overall status at discharge: patient is back to baseline Discharge Orders: Discharge Order (Routine); Ordered 12/27/21 Ordered By: West SIMS VTE Deep Vein Thrombosis/Pulmonary Embolism Present on Admission: No
[2021-12-27] MEDS ORDERED: CYCLOBENZAPRINE 10 MG TABLET PO SCH (21:00)
--- NOTE | 2021-12-29 13:57 | EKG ---
[facility] Test Date: 2021-12-26 Pat Name: Selena Arora Department: ED Room: Gender: Female Hand Presser: : 1975 Requested By: Mykel Valero Order Number: [id number] Reading MD: Oliverio Panchal Measurements Intervals [place] Rate: 93 P: 46 OR: 110 QRS: 58 QRSD: 86 T: 2 QT: 384 QTc: 478 Interpretive Statements Sinus rhythm Borderline short OR interval Minimal ST depression, diffuse leads Electronically Signed On 12-29-2021 13:56:05 PDT by Oliverio Panchal /store/[email or web address]/[id number]
== END 2021-12-27 17:25 | disposition home or self-care (01) | DRG 812 ==
LOC: ED 16:18 → MEDSUR 20:55
PROVIDERS: ADMIT Internal Medicine; ATTEND Internal Medicine